=== PATIENT | female | born 1975 | race American Indian/Alaskan Native ===

== ENCOUNTER 2017-02-10 22:13 | Emergency (ER) | payer MEDICAID ==
[2017-02-10 22:34] VITALS: BMI 25.0
[2017-02-10 22:35] VITALS: BP 122/55
[2017-02-10] MEDS ORDERED: Famotidine 20mg/50ml 20 MG/50 ML BAG IV STA (23:12)
[2017-02-10] MEDS ORDERED: Sodium Chloride 0.9% 1,000 ML IV STA (23:12)
[2017-02-11 00:08] LABS: ALB/GLOB RATIO 1.1 (1.1-1.8); ALBUMIN 4.6 g/dL (3.0-4.8); ALT/SGPT 78 U/L (7-56); AST/SGOT 40 U/L (15-39); BLOOD UREA NITROGEN 13 mg/dL (7-21); CALCIUM 10.3 mg/dL (8.4-10.5); GFR AFRICAN-AMERICAN > 60; GFR NON-AFRICAN AMERICAN > 60; LIPASE 425 U/L (23-300)
[2017-02-11 00:10] LABS: BASO # 0.01 K/mm3 (0.0-2.0); BASO % 0.1 % (0.0-3.0); EOS # 0.1 (0.0-0.7); EOS % 0.6 % (1.5-5.0); GRAN # 5.84 (1.4-6.5); GRAN % 61.6 % (50.0-68.0); HEMOGLOBIN 12.2 g/dL (12.0-16.0); INR 0.99 (0.93-1.08); LYMPH # 3.1 (1.2-3.4); LYMPH % 32.8 % (22.0-35.0); MEAN CELL VOLUME 75.7 fl (80.0-105.0); MEAN CORPUSCULAR HEMOGLOBIN 25.1 pg (25.0-35.0); MEAN CORPUSCULAR HGB CONC 33.2 g/dl (31.0-37.0); MEAN PLATELET VOLUME 9.4 fl (7.0-11.0); MONO # 0.5 (0.1-0.6); MONO % 4.9 % (1.0-6.0); PARTIAL THROMBOPLASTIN TIME 25.2 Seconds (23.7-30.8); PLATELET COUNT 289 10^3/uL (120.0-450.0); PROTHROMBIN TIME 10.7 Seconds (9.9-11.8); RBC 4.86 10^6/uL (3.5-6.1); RED CELL DISTRIBUTION WIDTH 13.9 % (11.5-14.5); URINE BILIRUBIN NEGATIVE (NEGATIVE); URINE BLOOD NEGATIVE (NEGATIVE); URINE GLUCOSE (UA) NEGATIVE (NEGATIVE); URINE LEUKOCYTE ESTERASE LARGE Leu/uL (NEGATIVE); URINE NITRATE POSITIVE (NEGATIVE); URINE PROTEIN 100 mg/dL (<30 mg/dL); URINE UROBILINOGEN 0.2 E.U./dL (<1 E.U./dL); WHITE BLOOD COUNT 9.5 10^3/ul (4.5-11.0)
[2017-02-11 00:14] LABS: URINE APPEARANCE CLOUDY (CLEAR); URINE COLOR YELLOW (YELLOW)
[2017-02-11 00:25] LABS: URINE BACTERIA MANY (NEG); URINE EPITHELIAL CELLS 0 - 2 /hpf (0-5); URINE RBC 0 - 2 /hpf (0-2)
--- NOTE | 2017-02-11 00:54 | ED PDOC ---
Arrival/HPI - General Chief Complaint: Abdominal Pain Time Seen by Provider: 02/10/17 22:34 Historian: Patient - History of Present Illness Narrative History of Present Illness (Text): 02/11/17 00:52 Kathe Gutiérrez is a 41 year old female, with a history of breast cancer with metastasis and recurrent pancreatitis, presents to the emergency department complaining of diffuse abdominal pain associated with nausea and non-bloody, non -bilious vomiting. States that symptoms are similar to pervious episodes of pancreatitis. Denies fever, chills, headache, dizziness, chest pain, difficulty breathing, urinary symptoms, diarrhea, or any other complaints at this time. Symptom Course: Unchanged Severity Level: Mild Activities at Onset: Light Past Medical History - Provider Review Nursing Documentation Reviewed: Yes - Cardiac Hx Cardiac Disorders: No - Pulmonary Hx Respiratory Disorders: No - Neurological Hx Neurological Disorder: No - HEENT Hx HEENT Disorder: No - Renal Hx Renal Disorder: No - Endocrine/Metabolic Hx Endocrine Disorders: No - Hematological/Oncological Hx Blood Disorders: No - Integumentary Hx Dermatological Disorder: No - Musculoskeletal/Rheumatological Hx Musculoskeletal Disorders: No - Gastrointestinal Hx Gastrointestinal Disorders: No - Genitourinary/Gynecological Hx Genitourinary Disorders: No - Psychiatric Hx Psychophysiologic Disorder: No Hx Substance Use: No - Surgical History Hx Cholecystectomy: Yes Hx Mastectomy: Yes (2007 left arm limb alert) Other/Comment: 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 absent: Fatigue, Weight Change, Fevers Eyes: Normal ENT: Normal Respiratory: Normal absent: SOB, Cough, Sputum Cardiovascular: Normal absent: Chest pain, Palpitations, Syncope Gastrointestinal: Present: Diffuse abdominal pain, nausea, vomiting absent: Diarrhea Genitourinary: Normal. absent: Dysuria, Frequency, Hematuria Musculoskeletal: Normal. absent: Arthralgias, Back Pain, Neck Pain Skin: Normal Neurological: Normal absent: Focal Weakness Endocrine: Normal Hemo/Lymphatic: Normal Psychiatric: Normal - Physical exam Patient appears age appropriate, speaking full sentences without difficulty. - Systems Exam Head: Present: Atraumatic, Normocephalic Pupils: Present: PERRL Extraocular Muscles: Present: EOMI Conjunctiva: Present: Normal Mouth: Present: Moist Mucous Membranes Neck: Present: Normal Range of Motion. No: MIDLINE TENDERNESS, Paraspinal Tenderness Respiratory/Chest: Present: Clear to Auscultation, Good Air Exchange. No: Respiratory Distress, Accessory Muscle Use, Tachypnic Cardiovascular: Present: Regular Rate and Rhythm, Normal S1, S2, Peripheral Pulses Present. No: Murmurs Abdomen: Present: Normal Bowel Sounds, No: Tenderness, Peritoneal Signs, Rebound, Guarding, Distention Back: Present: Normal Inspection. No: Midline Tenderness, Paraspinal Tenderness Upper Extremity: Present: Normal Inspection. No: Cyanosis, Edema Lower Extremity: Present: Normal Inspection. No: Edema Neurological: Present: GCS=15, Speech Normal, cranial nerves II through XII fully intact with no cerebellar abnormality, neuro-sensory fully intact. No focal neurological deficits. Skin: Present: Warm, Dry, Normal Color. No: Rashes Lymphatic: Present: OX3, NI, NC Psychiatric: Present: Alert, Oriented x 3, Normal Insight, Normal Concentration Vital Signs Reviewed: Yes Vital Signs Temp Pulse Resp BP Pulse Ox 02/10/17 22:35 98.3 F 82 16 122/55 L 100 02/10/17 22:34 98.3 F 82 16 122/55 L 100 Temperature: Afebrile Blood Pressure: Normal Pulse: Regular Respiratory Rate: Normal Appearance: Positive for: Well-Appearing, Non-Toxic, Comfortable Pain Distress: None Mental Status: Positive for: Alert and Oriented X 3 Medical Decision Making ED Course and Treatment: 02/11/17 00:56 Impression: A 41 year old female who presents to the ed complaining of diffuse abdominal pain associated with nausea and vomiting. On exam, abdomen is soft, nontender. No remarkable findings. Differential Diagnosis included but are not limited to: Pancreatitis vs. non- specific abdominal discomfort Plan: -- CT abdomen pelvis -- Toradol -- Zofran -- Pepcid -- IV fluids -- Urine Culture -- Urinalysis -- Reassess and disposition Progress Notes: 02/11/17 01:58 UTI noted on Urinalysis. Rocephin ordered. Patient is ambulating with steady gait without any difficulty, denies abd pain and states she feels much better. 02/11/17 02:19 CT abdomen pelvis: Dictated and Authenticated by: Cecilia Victoria MD IMPRESSION: No acute solid visceral or bowel abnormality; prior cholecystectomy 02/11/17 02:31 Pt states she feels comfortable being dc'd home with outpatient f/u Pt states she has pain meds (dilaudid) at home. states she is not driving home On reevaluation, patient reports that she feels much better and would like to be discharged home. Patient's repeat abdominal exam is soft, nontender, non distended with positive bowel sounds in all 4 quadrants and no peritoneal signs. Patient is tolerating PO without any difficulty. Pt states she understands to return to the ER right away for new or worsening symptoms or for inability to f/u with PMD or specialist as instructed. Patient states that she fully agrees with and understands discharge instructions. States that she agrees with the plan and disposition. Verbalized and repeated discharge instructions and plan. I have given the patient opportunity to ask any additional questions. - Lab Interpretations Lab Results: 02/10/17 23:45 02/10/17 23:45 Lab Results 02/10/17 23:45: Urine Color Yellow, Urine Appearance Cloudy, Urine pH 7.0, Ur Specific [place] 1.020, Urine Protein 100 H, Urine Glucose (UA) Negative, Urine Ketones Trace H, Urine Blood Negative, Urine Nitrate Positive H, Urine Bilirubin Negative, Urine Urobilinogen 0.2, Ur Leukocyte Esterase Large H, Urine RBC 0 - 2, Urine WBC 10 - 15, Ur Epithelial Cells 0 - 2, Urine Bacteria Many 02/10/17 23:45: Sodium 140, Potassium 4.3, Chloride 100, Carbon Dioxide 26, Anion Gap 18, BUN 13, Creatinine 0.8, Est GFR ( Amer) > 60, Est GFR (Non- Af Amer) > 60, Random Glucose 85, Calcium 10.3, Total Bilirubin 0.7, AST 40 H, ALT 78 H, Alkaline Phosphatase 98, Total Protein 9.0 H, Albumin 4.6, Globulin 4.4, Albumin/Globulin Ratio 1.1, Lipase 425 H 02/10/17 23:45: PT 10.7, INR 0.99, APTT 25.2 02/10/17 23:45: WBC 9.5, RBC 4.86, Hgb 12.2, Hct 36.8, MCV 75.7 L, MCH 25.1, MCHC 33.2, RDW 13.9, Plt Count 289, MPV 9.4, Gran % 61.6, Lymph % (Auto) 32.8, [place] % (Auto) 4.9, Eos % (Auto) 0.6 L, Baso % (Auto) 0.1, Gran # 5.84, Lymph # 3.1, [place] # 0.5, Eos # 0.1, Baso # 0.01 I have reviewed the lab results: Yes - RAD Interpretation Narrative RAD Interpretations (Text): EXAM: CT Abdomen and Pelvis Without Intravenous Contrast Dictated and Authenticated by: Cecilia Victoria MD FINDINGS: Lower thorax: Heart size is normal. There is minimal atelectasis and scarring at the lung bases There is a small hiatal hernia. ABDOMEN: Liver: unremarkable Gallbladder and bile ducts: Gallbladder is surgically absent. Common bile duct is unremarkable. Pancreas: Pancreas is mildly atrophic. Spleen: unremarkable Adrenals: Right adrenal is normal in size. There small calcifications in the right adrenal. Left adrenal is unremarkable. Kidneys and ureters: unremarkable Stomach and bowel: unremarkable Appendix: Stomach is incompletely distended. Rotation is normal. There is no obstruction. Terminal ileum is unremarkable. Appendix is unremarkable.There are no focal colonic abnormalities. PELVIS: Bladder: Bladder is almost empty. Reproductive: Uterus and adnexal structures are unremarkable. ABDOMEN and PELVIS: Intraperitoneal space: There is no significant fluid.There is no free air. Bones/joints: There are early degenerative changes in the bony structures. Soft tissues: There are clips in the right inguinal region. There is edema in both buttocks. Right rectus muscle is atrophic. There is a small umbilical hernia Vasculature: There are multiple phleboliths.Vascular structures are unremarkable. Lymph nodes: There is no pathologic adenopathy. Tubes, lines and devices: There is streak artifact from a catheter. IMPRESSION: No acute solid visceral or bowel abnormality; prior cholecystectomy Additional findings as described above. 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 - Medication Orders Current Medication Orders: Discontinued Medications Famotidine (Pepcid 20mg/50ml Premix) 20 mg in 50 mls @ 100 mls/hr IV STAT STA Stop: 02/10/17 23:41 Last Admin: 02/11/17 00:14 Dose: 100 mls/hr Sodium Chloride (Sodium Chloride 0.9%) 1,000 mls @ 1,000 mls/hr IV .Q1H STA Stop: 02/11/17 00:11 Last Admin: 02/11/17 00:15 Dose: 1,000 mls/hr Ceftriaxone Sodium (Rocephin 1 Gram Ivpb) 1 gm in 100 mls @ 200 mls/hr IV STAT STA PRN Reason: Protocol Stop: 02/11/17 02:21 Ketorolac Tromethamine (Toradol) 30 mg IVP STAT STA Stop: 02/10/17 23:13 Last Admin: 02/11/17 00:14 Dose: 30 mg Morphine Sulfate (Morphine) 4 mg IVP STAT STA Stop: 02/11/17 01:21 Morphine Sulfate (Morphine) Confirm Administered Dose 4 mg .ROUTE .STK-MED ONE Stop: 02/11/17 01:32 Ondansetron HCl (Zofran Inj) 4 mg IVP STAT STA Stop: 02/10/17 23:13 Last Admin: 02/11/17 00:15 Dose: 4 mg - Scribe Statement The provider has reviewed the documentation as recorded by the Morgan Collier Provider Attestation: All medical record entries made by the Morgan were at my direction and personally dictated by me. I have reviewed the chart and agree that the record accurately reflects my personal performance of the history, physical exam, medical decision making, and the department course for this patient. I have also personally directed, reviewed, and agree with the discharge instructions and disposition. Disposition/Present on Arrival - Present on Arrival Any Indicators Present on Arrival: No History of DVT/PE: No History of Uncontrolled Diabetes: No Urinary Catheter: No History of Decub. Ulcer: No History Surgical Site Infection Following: None - Disposition Have Diagnosis and Disposition been Completed?: Yes Diagnosis: Abdominal pain, UTI (urinary tract infection) Disposition: HOME/ ROUTINE Disposition Time: 02:33 Patient Plan: Discharge Condition: GOOD Discharge Instructions (ExitCare): Acute Abdominal Pain (ED), Pancreatitis (ED) , Urinary Tract Infection in Women (DC) Additional Instructions: PLEASE RETURN TO THE EMERGENCY DEPARTMENT FOR NEW OR WORSENING SYMPTOMS. RETURN RIGHT AWAY IF YOU CANNOT FOLLOW UP WITH YOUR PRIMARY CARE DOCTOR, CLINIC, OR SPECIALIST IN 1-2 DAYS. Prescriptions: Nitrofurantoin Macrocrystals [Macrobid] 100 mg PO BID #14 cap Ondansetron [Zofran Odt] 4 mg PO Q6 PRN #14 odt PRN Reason: Nausea/Vomiting Referrals: Mayi Jeffrey MD [Primary Care Provider] - Follow up with primary Forms: [facility] (Mongolian), WORK NOTE
[2017-02-11] MEDS ORDERED: Morphine 4 mg/ml ISec IVP STA (01:20)
[2017-02-11] MEDS ORDERED: Morphine 4 mg/ml ISec ONE (01:31)
[2017-02-11] MEDS ORDERED: cefTRIAXone 1 gm 1 GM/100 ML BAG IV STA (01:52)
--- NOTE | 2017-02-11 02:08 | CT ---
EXAM: CT Abdomen and Pelvis Without Intravenous Contrast CLINICAL HISTORY: 41 years old, female; Pain; Abdominal pain; Additional info: Abd pain TECHNIQUE: Axial computed tomography images of the abdomen and pelvis without intravenous contrast. All CT scans at this facility use one or more dose reduction techniques, viz.: automated exposure control; ma/kV adjustment per patient size (including targeted exams where dose is matched to indication; i.e. head); or iterative reconstruction technique. Coronal and sagittal reformatted images were created and reviewed. EXAM DATE/TIME: 02/11/2017 12:53 AM COMPARISON: There are no prior studies for comparison. FINDINGS: Lower thorax: Heart size is normal. There is minimal atelectasis and scarring at the lung bases There is a small hiatal hernia. ABDOMEN: Liver: unremarkable Gallbladder and bile ducts: Gallbladder is surgically absent. Common bile duct is unremarkable. Pancreas: Pancreas is mildly atrophic. Spleen: unremarkable Adrenals: Right adrenal is normal in size. There small calcifications in the right adrenal. Left adrenal is unremarkable. Kidneys and ureters: unremarkable Stomach and bowel: unremarkable Appendix: Stomach is incompletely distended. Rotation is normal. There is no obstruction. Terminal ileum is unremarkable. Appendix is unremarkable.There are no focal colonic abnormalities. PELVIS: Bladder: Bladder is almost empty. Reproductive: Uterus and adnexal structures are unremarkable. ABDOMEN and PELVIS: Intraperitoneal space: There is no significant fluid.There is no free air. Bones/joints: There are early degenerative changes in the bony structures. Soft tissues: There are clips in the right inguinal region. There is edema in both buttocks. Right rectus muscle is atrophic. There is a small umbilical hernia Vasculature: There are multiple phleboliths.Vascular structures are unremarkable. Lymph nodes: There is no pathologic adenopathy. Tubes, lines and devices: There is streak artifact from a catheter. IMPRESSION: No acute solid visceral or bowel abnormality; prior cholecystectomy Additional findings as described above.
[2017-02-11 02:58] VITALS: PULSE 87; RESP 18; TEMP 98.1; O2SAT 96
== END 2017-02-11 03:15 | disposition home or self-care (01) ==
LOC: ED 22:13 → MERGE 22:13 → ED 02-11 03:15
DX: N39.0 Urinary tract infection, site not specified (principal); R10.9 Unspecified abdominal pain
CPT/HCPCS: 74176; 80053; 81001; 83690; 85025; 85610; 85730; 87086; 87181; 96374; 96375; 99283; J0696; J1885; J2270; J2405; J7040